=== PATIENT | female | born 1990 | race Caucasian/White ===

== ENCOUNTER 2019-02-21 22:42 | Emergency (ER) | payer SELFPAY ==
[~2019-02-21] VITALS: Ht 175 cm; Wt 81.0 kg
[~2019-02-21 22:42] MED LIST: IBP600T1 PO; OXYC1TAB87 PO; PREN-115 PO
[2019-02-21] MEDS ORDERED: NS IV 1000 ML 1,000 ML IV SCH (23:11)
[2019-02-21] MEDS ORDERED: KETOROLAC 30 MG/ML VIAL IVP STA (23:20)
[2019-02-21 23:28] LABS: BASOPHILS % (AUTO) 0 % (0-10); EOSINOPHILS # (AUTO) 0.1 10^3/uL (0.0-0.3); EOSINOPHILS % (AUTO) 1 % (0-10); HEMATOCRIT 38 % (35-52); HEMOGLOBIN 12.7 G/DL (11.5-16.0); LYMPHOCYTES # (AUTO) 0.5 X 10^3 (1.0-4.0); LYMPHOCYTES % (AUTO) 6 % (12-44); MEAN CORPUSCULAR HEMOGLOBIN 27 PG (25-34); MEAN CORPUSCULAR HGB CONC 33 G/DL (32-36); MEAN CORPUSCULAR VOLUME 81 FL (80-99); MEAN PLATELET VOLUME 11.5 FL (7.4-10.4); MONOCYTES # (AUTO) 0.4 X 10^3 (0.0-1.0); MONOCYTES % (AUTO) 5 % (0-12); NEUTROPHILS # (AUTO) 7.3 X 10^3 (1.8-7.8); NEUTROPHILS % (AUTO) 88 % (42-75); PLATELET COUNT 177 10^3/uL (130-400); RED CELL DISTRIBUTION WIDTH 13.3 % (10.0-14.5); WHITE BLOOD COUNT 8.3 10^3/uL (4.3-11.0)
[2019-02-21 23:29] LABS: BILIRUBIN,URINE 1+ (NEGATIVE); CLARITY,URINE CLEAR; COLOR,URINE YELLOW; GLUCOSE, URINE (UA) NEGATIVE (NEGATIVE); KETONES,URINE 1+ (NEGATIVE); LEUKOCYTE ESTERASE ,URINE 1+ (NEGATIVE); NITRITE,URINE NEGATIVE (NEGATIVE); PROTEIN,URINE 1+ (NEGATIVE)
[2019-02-21] MEDS ORDERED: ORPHENADRINE 60 MG/2 ML (NORFLEX) AMP IV ONE (23:30)
--- NOTE | 2019-02-21 23:32 | ED Back Pain ---
General Chief Complaint: Back Problems Stated Complaint: ABD PAIN/BACK PAIN Nursing Triage Note: Pt ambulated to RM9. Pt complaining of back pain 6:10 x2 days. Back pain has been accompanied by abdominal pain as well but the back pain is "worse". Nursing Sepsis Screen: Possible Severe Sepsis Risk (CARMEN RANDALL) History of Present Illness Date Seen by Provider: Feb 21, 2019 Time Seen by Provider: 23:05 Initial Comments 28-year-old female presents for low back and abdominal pain that is been present for approximately 2 days. She has been taking Tylenol intermitten tly, last dose at 12:00 today. She denies any nausea, vomiting or diarrhea. She denies any injuries to her back or previous back problems. She has no paresthesias or radicular symptoms in her lower extremities. She reports the pain feeling like pressure or a contraction. Her urine hCG is negative. Timing/Duration: 1-2 Days Severity: Moderate Pain/Injury Location: Abdomen, Back Method of Injury: Unknown Associated Symptoms: muscle spasms; No numbness in legs/feet, No tingling in legs/feet, No sensory/motor loss; lower back pain; No loss of bladder control, No loss of bowel control (CARMEN RANDALL) Allergies and Home Medications Allergies Coded Allergies: No Known Drug Allergies (Unverified , 09/22/12) Home Medications Cyclobenzaprine HCl 10 Mg Tablet, 10 MG PO Q8H PRN for SPASMS Prescribed by: ERNESTINE VILLANUEVA on 02/22/19 004 Ibuprofen 600 Mg Tab, 600 MG PO Q6H Prescribed by: CADENCE STAPLES on 12/11/12 1005 Naproxen 500 Mg Tablet, 500 MG PO BID Prescribed by: ERNESTINE VILLANUEVA on 02/22/19 0045 Oxycodone Hcl/Acetaminophen 1 Tab Tablet, 0 TAB PO Q4H PRN Prescribed by: CADENCE STAPLES on 12/11/12 1005 Vit #108/Iron/Fa 1 Each Tablet, 1 EACH PO DAILY, (Reported) Patient Home Medication List Home Medication List Reviewed: Yes (CARMEN RANDALL) Review of Systems Constitutional: no symptoms reported, see HPI Gastrointestinal: see HPI, abdominal pain Genitourinary: no symptoms reported, see HPI Musculoskeletal: see HPI, back pain (CARMEN RANDALL) All Other Systems Reviewed Negative Unless Noted: Yes (CARMEN RANDALL) Past Ktwrtlu-Kwiycr-Rsjaqg Hx Past Med/Social Hx: Reviewed Nursing Past Med/Soc Hx (CARMEN RANDALL) Patient Social History Alcohol Use: Denies Use Recreational Drug Use: No Smoking Status: Current Everyday Smoker Type Used: Cigarettes Recent Foreign Travel: No Contact w/Someone Who Travel: No Recent Infectious Disease Expo: No (CARMEN RANDALL MAGO) Immunizations Up To Date Tetanus Booster (TDap): Less than 5yrs Date of Influenza Vaccine: Oct 31, 2012 (CARMEN RANDALLP) Past Medical History Last Menstrual Period: Jan 31, 2019 Reproductive Disorders: 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 2.0oz. 112.385666cy; 26.00 BMI Method: General Appearance: No Apparent Distress, Mild Distress HEENT: PERRL/EOMI, TMs Normal, Normal ENT Inspection, Pharynx Normal Neck: Full Range of Motion, Normal Inspection, Non Tender, Supple Cardiovascular: Regular Rate, Rhythm, No Murmur, Normal Peripheral Pulses Respiratory: Chest Non Tender, Lungs Clear, Normal Breath Sounds Gastrointestinal: Normal Bowel Sounds, Soft; No Distended, No Guarding, No Rebound; Tenderness (generalized) Back: CVA Tenderness (L), CVA Tenderness (R), Decreased Range of Motion (secondary to pain), Muscle Spasm, Vertebral Tenderness (mid to lower lumbar), Other (Power V/V L4-S1. Neg SLR. ) Extremity: Normal Capillary Refill, Normal Inspection, Normal Range of Motion Neurologic/Psychiatric: Alert, Oriented x3, No Motor/Sensory Deficits, Normal Mood/Affect Skin: Normal Color, Warm/Dry (CARMEN RANDALLP) Progress/Results/Core Measures Results/Orders Lab Results Laboratory Tests Test 02/21/19 23:01 02/21/19 23:10 Range/Units Urine Color YELLOW Urine Clarity CLEAR Urine pH 6.0 5-9 Urine Specific [place] >=1.030 1.016-1.022 Urine Protein 1+ H NEGATIVE Urine Glucose (UA) NEGATIVE NEGATIVE Urine Ketones 1+ H NEGATIVE Urine Nitrite NEGATIVE NEGATIVE Urine Bilirubin 1+ H NEGATIVE Urine Urobilinogen 4.0 < = 1.0 MG/DL Urine Leukocyte Esterase 1+ H NEGATIVE Urine RBC (Auto) NEGATIVE NEGATIVE Urine RBC NONE /HPF Urine WBC 10-25 H /HPF Urine Squamous Epithelial Cells 10-25 H /HPF Urine Crystals PRESENT H /LPF Urine Amorphous Sediment MOD DINO URATES H /LPF Urine Bacteria MODERATE H /HPF Urine Casts PRESENT /LPF Urine Hyaline Casts 0-2 H /LPF Urine Mucus MODERATE H /LPF Urine Culture Indicated YES White Blood Count 8.3 4.3-11.0 10^3/uL Red Blood Count 4.76 4.35-5.85 10^6/uL Hemoglobin 12.7 11.5-16.0 G/DL Hematocrit 38 35-52 % Mean Corpuscular Volume 81 80-99 FL Mean Corpuscular Hemoglobin 27 25-34 PG Mean Corpuscular Hemoglobin Concent 33 32-36 G/DL Red Cell Distribution Width 13.3 10.0-14.5 % Platelet Count 177 130-400 10^3/uL Mean Platelet Volume 11.5 H 7.4-10.4 FL Neutrophils (%) (Auto) 88 H 42-75 % Lymphocytes (%) (Auto) 6 L 12-44 % Monocytes (%) (Auto) 5 0-12 % Eosinophils (%) (Auto) 1 0-10 % Basophils (%) (Auto) 0 0-10 % Neutrophils # (Auto) 7.3 1.8-7.8 X 10^3 Lymphocytes # (Auto) 0.5 L 1.0-4.0 X 10^3 Monocytes # (Auto) 0.4 0.0-1.0 X 10^3 Eosinophils # (Auto) 0.1 0.0-0.3 10^3/uL Basophils # (Auto) 0.0 0.0-0.1 10^3/uL Neutrophils % (Manual) 89 % Lymphocytes % (Manual) 6 % Monocytes % (Manual) 2 % Band Neutrophils 3 % Blood Morphology Comment NORMAL Sodium Level 139 135-145 MMOL/L Potassium Level 4.2 3.6-5.0 MMOL/L Chloride Level 108 H 98-107 MMOL/L Carbon Dioxide Level 18 L 21-32 MMOL/L Anion Gap 13 5-14 MMOL/L Blood Urea Nitrogen 13 7-18 MG/DL Creatinine 0.90 0.60-1.30 MG/DL Estimat Glomerular Filtration Rate > 60 BUN/Creatinine Ratio 14 Glucose Level 100 70-105 MG/DL Calcium Level 9.1 8.5-10.1 MG/DL Corrected Calcium 9.1 8.5-10.1 MG/DL Total Bilirubin 0.5 0.1-1.0 MG/DL Aspartate Amino Transf (AST/SGOT) 140 H 5-34 U/L Alanine Aminotransferase (ALT/SGPT) 273 H 0-55 U/L Alkaline Phosphatase 130 40-136 U/L Total Protein 7.4 6.4-8.2 GM/DL Albumin 4.0 3.2-4.5 GM/DL (ERNESTINE VILLANUEVA) My Orders Orders - ERNESTINE VILLANUEVA Ua Culture If Indicated (02/21/19 22:49) Urine Bedside (02/21/19 22:49) Urine Culture (02/21/19 23:01) (ERNESTINE VILLANUEVA) Medications Given in ED Current Medications Medications Dose Ordered Sig/Gissel Route Start Time Stop Time Status Last Admin Dose Admin Orphenadrine Citrate 60 mg ONCE ONCE IV 02/21/19 23:30 02/21/19 23:31 DC 02/21/19 23:30 60 MG (ERNESTINE VILLANUEVA) Vital Signs/I&O 02/21/19 22:49 Temp 36.7 Pulse 109 Resp 22 B/P (MAP) 117/68 (84) Pulse Ox 100 O2 Delivery Room Air (ERNESTINE VILLANUEVA) Blood Pressure Mean: 84 Progress Progress Note : Time: 23:05 Progress Note Patient seen and evaluated, will obtain labs, normal saline 1 L per IV, Norflex 60 mg IV and Toradol 30 mg IV. Will await lab studies before determining if it diagnostic imaging needs to be completed. [address] Villanueva, report given and patient notified. (CARMEN RANDALL) Progress Note : Time: 00:42 Progress Note Patient's pain is much better. The tightness in her shoulders has improved. No signs of urinary tract infection or red blood cells to suggest a kidney stone. Her pain is reproducible to palpation over her back. (ERNESTINE VILLANUEVA) Departure Impression Primary Impression: Back pain Qualified Codes: M54.6 - Pain in thoracic spine Disposition: HOME, SELF-CARE Condition: Improved Departure-Patient Inst. Decision time for Depature: 00:40 (ERNESTINE VILLANUEVA) Referrals: CADENCE STAPLES DO (PCP) Primary Care Physician Patient Instructions: Back Flexion Stretching Exercises, Low Back Pain (DC) Add. Discharge Instructions: Naproxen 500 mg twice a day for the next 2 weeks. Heating pads, topical creams, icy hot and Biofreeze etc. Tylenol 1000 g every 8 hours as needed for pain. Flexeril/cyclobenzaprine one tablet every 8 hours as needed for muscle spasms. Follow-up with a primary care doctor, chiropractor or pursue physical therapy if you're not seeing improvement in 1-2 weeks. All discharge instructions reviewed with patient and/or family. Voiced understanding. Scripts Cyclobenzaprine HCl (Cyclobenzaprine HCl) 10 Mg Tablet 10 MG PO Q8H PRN for SPASMS, #15 TAB 0 Refills Prov: ERNESTINE VILLANUEVA 02/22/19 Naproxen (Naprosyn) 500 Mg Tablet 500 MG PO BID, #30 TAB 0 Refills Prov: ERNESTINE VILLANUEVA 02/22/19 Work/School Note: Work Release Form Date Seen in the Emergency Department: Feb 22, 2019 Return to Work: Feb 24, 2019 Restrictions: Need Release from Doctor Other Restrictions Listed Below: Do not lift greater than 40 pounds until 03/06/19. CARMEN RANDALL Feb 21, 2019 23:32 ERNESTINE VILLANUEVA Feb 22, 2019 00:47
[2019-02-21 23:43] LABS: ALANINE AMINOTRANSFERASE 273 U/L (0-55); ALKALINE PHOSPHATASE 130 U/L (40-136); BILIRUBIN,TOTAL 0.5 MG/DL (0.1-1.0); BUN/CREATININE RATIO 14; CALCIUM 9.1 MG/DL (8.5-10.1); CARBON DIOXIDE 18 MMOL/L (21-32); CHLORIDE 108 MMOL/L (98-107); GFR ESTIMATED > 60; GLUCOSE 100 MG/DL (70-105); POTASSIUM 4.2 MMOL/L (3.6-5.0); SODIUM 139 MMOL/L (135-145); TOTAL PROTEIN 7.4 GM/DL (6.4-8.2)
[2019-02-21 23:55] LABS: BACTERIA,URINE MODERATE /HPF
[2019-02-21 23:56] LABS: AMORPHOUS SEDIMENT,UR MOD AMOR URATES /LPF; HYALINE CASTS, URINE 0-2 /LPF
[2019-02-22 00:01] LABS: BAND NEUTROPHILS 3 %; LYMPHOCYTES % (MANUAL) 6 %; MONOCYTES % (MANUAL) 2 %; NEUTROPHILS % (MANUAL) 89 %; RBC MORPH NORMAL
[2019-02-22] MEDS ORDERED: CYCL10TA9 PO (00:45)
[2019-02-22] MEDS ORDERED: NAPR-1071 PO (00:45)
[2019-02-22 00:55] VITALS: BP 117/68
== END 2019-02-22 00:55 | disposition home or self-care (01) ==
LOC: EDUNIT# 22:42 → ER 22:44
DX: M54.5 Low back pain (principal); F17.210 Nicotine dependence, cigarettes, uncomplicated; Z98.51 Tubal ligation status; Z87.19 Personal history of other diseases of the digestive system
CPT/HCPCS: 36415; 80053; 81000; 84703; 85007; 85027; 87088; 96374; 96375

== ENCOUNTER 2020-12-24 20:25 | Emergency (ER) | payer SELFPAY ==
[~2020-12-24] VITALS: Ht 175 cm; Wt 81.0 kg
[~2020-12-24 20:25] MED LIST changes: +CYCL10TA9 PO; +NAPR-1071 PO
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
[2020-12-24] MEDS ORDERED: NS 100 ML (IVPB) BAG IV ONE (21:15)
[2020-12-24] MEDS ORDERED: HOLD METFORMIN - RECEIVED CONTRAST 20 ML VIAL IV SCH (21:15)
[2020-12-24] MEDS ORDERED: IOHEXOL 350 MG/ML 100 ML (OMNIPAQUE 350) VIAL IV ONE (21:15)
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
[2020-12-24 21:39] LABS: BASOPHILS % (AUTO) 1 % (0-10); EOSINOPHILS # (AUTO) 0.2 10^3/uL (0.0-0.3); EOSINOPHILS % (AUTO) 2 % (0-10); HEMATOCRIT 38 % (35-52); HEMOGLOBIN 12.1 g/dL (11.5-16.0); LYMPHOCYTES # (AUTO) 1.2 10^3/uL (1.0-4.0); LYMPHOCYTES % (AUTO) 15 % (12-44); MEAN CORPUSCULAR HEMOGLOBIN 27 pg (25-34); MEAN CORPUSCULAR HGB CONC 32 g/dL (32-36); MEAN CORPUSCULAR VOLUME 84 fL (80-99); MEAN PLATELET VOLUME 11.2 fL (9.0-12.2); MONOCYTES # (AUTO) 0.5 10^3/uL (0.0-1.0); MONOCYTES % (AUTO) 6 % (0-12); NEUTROPHILS # (AUTO) 6.2 10^3/uL (1.8-7.8); NEUTROPHILS % (AUTO) 76 % (42-75); PLATELET COUNT 203 10^3/uL (130-400); WHITE BLOOD COUNT 8.1 10^3/uL (4.3-11.0)
[2020-12-24 22:06] LABS: ALANINE AMINOTRANSFERASE 144 U/L (0-55); ALBUMIN 4.1 GM/DL (3.2-4.5); ALKALINE PHOSPHATASE 92 U/L (40-136); BILIRUBIN,TOTAL 0.3 MG/DL (0.1-1.0); BUN/CREATININE RATIO 22; CALCIUM 8.9 MG/DL (8.5-10.1); CARBON DIOXIDE 21 MMOL/L (21-32); CHLORIDE 104 MMOL/L (98-107); CREATININE SERUM 0.73 MG/DL (0.60-1.30); GFR ESTIMATED 93; GLUCOSE 95 MG/DL (70-105); POTASSIUM 4.2 MMOL/L (3.6-5.0); SODIUM 135 MMOL/L (135-145); TOTAL PROTEIN 7.7 GM/DL (6.4-8.2)
[2020-12-24 22:25] LABS: BILIRUBIN,URINE NEGATIVE (NEGATIVE); CLARITY,URINE CLEAR; COLOR,URINE YELLOW; GLUCOSE, URINE (UA) NEGATIVE (NEGATIVE); KETONES,URINE NEGATIVE (NEGATIVE); LEUKOCYTE ESTERASE ,URINE NEGATIVE (NEGATIVE); NITRITE,URINE NEGATIVE (NEGATIVE); PROTEIN,URINE TRACE (NEGATIVE)
[2020-12-24 22:39] LABS: AMPHETAMINE SCREEN, URINE POSITIVE (NEGATIVE); BARBITURATE SCREEN URINE NEGATIVE (NEGATIVE); BENZODIAZEPINES SCREEN URINE NEGATIVE (NEGATIVE); CANNABINOID SCREEN, URINE NEGATIVE (NEGATIVE); COCAINE SCREEN URINE NEGATIVE (NEGATIVE); METHADONE STAT NEGATIVE (NEGATIVE); METHAMPHETAMINE SCREEN URINE S POSITIVE (NEGATIVE); OPIATE SCREEN URINE NEGATIVE (NEGATIVE); OXYCODONE STAT NEGATIVE (NEGATIVE); PROPOXYPHENE STAT NEGATIVE (NEGATIVE); TRICYCLIC ANTIDEPRESSANTS SCRE NEGATIVE (NEGATIVE)
[2020-12-24 22:41] LABS: BACTERIA,URINE NEGATIVE /HPF; SQUAMOUS EPITHELIAL CELL,UR RARE /HPF
[2020-12-24] MEDS ORDERED: KETOROLAC 30 MG/ML VIAL IVP ONE (23:00)
[2020-12-24 23:17] VITALS: BP 103/89
== END 2020-12-24 23:22 | disposition home or self-care (01) ==
LOC: EDUNIT# 20:27 → ER 20:32
DX: S06.0X0A Concussion without loss of consciousness, initial encounter (principal); S00.03XA Contusion of scalp, initial encounter; V89.2XXA Person injured in unspecified motor-vehicle accident, traffic, initial encounter
CPT/HCPCS: 70450; 71045; 71260; 72125; 72170; 73030 ×2; 74177; 80053; 80306; 81000; 84703; 85025; 86850; 86900; 86901; 99284; G0480; 36415; 80320